=== PATIENT | male | born 1995 | race Caucasian/White ===

== ENCOUNTER 2017-05-24 11:07 | Emergency (ER) | payer SELFPAY ==
[~2017-05-24] VITALS: Ht 195.6 cm; Wt 104.3 kg
[~2017-05-24 11:07] MED LIST: AMOXIL500 MG PO; MOTRIN800 MG PO
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
--- NOTE | 2017-05-24 13:56 | CT SCAN REPORT ---
EXAMINATION: CT HEAD WITHOUT CONTRAST CLINICAL INFORMATION: Head injury. Loss of consciousness and headache. COMPARISON: No relevant prior imaging. TECHNIQUE: Contiguous axial imaging was performed from the skull base to vertex without intravenous administration of contrast. DLP: 643.26 mGy-cm FINDINGS: There is no acute intracranial hemorrhage or abnormal extra-axial collection. No intracranial mass effect or midline shift. Lateral and third ventricles are normal. No hydrocephalus. Smart-white matter differentiation is preserved and there is no evidence of acute territorial infarct. The calvarium and skull base are intact. Mastoid air cells and middle ear cavities are well aerated. Visualized paranasal sinuses are well-aerated with the exception of mild disease within the right frontal sinus and anterior ethmoid air cells. Globes and orbits are symmetric. IMPRESSION: Unremarkable CT scan of the head. No evidence of acute territorial infarct or hemorrhage.
[2017-05-24] MEDS ORDERED: NAPROSYN500 M1 PO (14:08)
[2017-05-24] MEDS ORDERED: ROBAXIN500 M1 PO (14:08)
[2017-05-24 14:19] VITALS: BP 130/85
== END 2017-05-24 14:18 ==
LOC: ERH 11:07
DX: S06.9X1A Unspecified intracranial injury with loss of consciousness of 30 minutes or less, initial encounter (principal); M54.5 Low back pain; V89.2XXA Person injured in unspecified motor-vehicle accident, traffic, initial encounter; Y92.9 Unspecified place or not applicable